=== PATIENT | female | born 1985 | race Two or more races ===

== ENCOUNTER 2017-07-06 11:24 | Emergency (ER) | payer MEDICAID, MEDICARE ==
[~2017-07-06] VITALS: Ht 157.5 cm; Wt 115.3 kg
[~2017-07-06 11:24] MED LIST: ONDA4TAB6 PO
[2017-07-06] MEDS ORDERED: DIAZ-351 PO (12:08)
[2017-07-06] MEDS ORDERED: diazepam 5mg tablet PO ONE (12:10)
[2017-07-06 12:30] VITALS: BP 129/81
== END 2017-07-06 12:33 | disposition home or self-care (01) ==
LOC: ER 11:25
DX: F19.939 Other psychoactive substance use, unspecified with withdrawal, unspecified (principal); F41.9 Anxiety disorder, unspecified; G89.29 Other chronic pain; J45.909 Unspecified asthma, uncomplicated; F17.210 Nicotine dependence, cigarettes, uncomplicated; Z90.49 Acquired absence of other specified parts of digestive tract; Z88.8 Allergy status to other drugs, medicaments and biological substances
CPT/HCPCS: 99283

== ENCOUNTER 2017-09-07 20:07 | Emergency (ER) | payer MEDICARE, OTHER ==
[~2017-09-07] VITALS: Ht 157.5 cm; Wt 99.0 kg
[~2017-09-07 20:07] MED LIST changes: +DIAZ-351 PO
[2017-09-07 21:31] VITALS: BP 124/72
== END 2017-09-07 21:33 | disposition home or self-care (01) ==
LOC: ER 20:07
DX: H69.82 Other specified disorders of Eustachian tube, left ear (principal); J45.909 Unspecified asthma, uncomplicated; G89.29 Other chronic pain; Z90.49 Acquired absence of other specified parts of digestive tract; Z79.899 Other long term (current) drug therapy
CPT/HCPCS: 99281